=== PATIENT | male | born 1995 ===

== ENCOUNTER → 2018-11-10 | Outpatient (CLI) | payer OTHER ==
[~2018-11-10] MED LIST: CETI-176 PO; FLUT16SP19 NS; HYDR-385 PO; IBUP800T37 PO
--- NOTE | 2018-11-10 14:58 | RADIOLOGY IMAGING REPORT ---
FACILITY: PATIENT NAME: Prabhakar Moya : 1995 MR: [id number] V: [id number] EXAM DATE: ORDERING PHYSICIAN: RAHUL BASSETT TECHNOLOGIST: Location: [facility] Patient: Prabhakar Moya : 1995 Visit/Account:[id number] Date of Sevice: 11/10/2018 Technique: KNEE 3 VIEW LEFT HISTORY: knee strain Comparison studies: None FINDINGS: There is no acute fracture. The alignment of the left knee. No knee joint effusion. IMPRESSION: 1. No acute osseous process. Report Dictated By: Aleksander Wray DO at 11/10/2018 2:54 PM Report E-Signed By: Aleksander Wray DO at 11/10/2018 2:55 PM WSN:[id number]
== END ==
LOC: RAD 14:17
PROVIDERS: ATTEND Internal Medicine
DX: S86.912A Strain of unspecified muscle(s) and tendon(s) at lower leg level, left leg, initial encounter (principal)

== ENCOUNTER → 2018-11-14 | Outpatient (CLI) | payer OTHER ==
--- NOTE | 2018-11-14 12:38 | RADIOLOGY IMAGING REPORT ---
FACILITY: [facility] [place] PATIENT NAME: Prabhakar Moya : 1995 MR: [id number] V: [id number] EXAM DATE: ORDERING PHYSICIAN: RAHUL BASSETT TECHNOLOGIST: Location: [facility] [place] Patient: Prabhakar Moya : 1995 Visit/Account:[id number] Date of Sevice: 11/14/2018 CT SINUS W/O CON COMPARISONS: None ADDITIONAL PERTINENT HISTORY: Recurrent sinusitis TECHNIQUE: Multiple axial images were obtained through the paranasal sinuses with coronal and sagitta l reformatted images. No IV contrast was administered. One of the following dose optimization techni ques was utilized in the performance of this exam: Automated exposure control; adjustment of the mA a nd/or kV according to the patient's size; or use of an iterative reconstruction technique. Specific details can be referenced in the facility's radiology CT exam operational policy. FINDINGS: Maxillary sinuses: Mild mucosal thickening involving the right maxillary sinus.. Frontal sinuses: Negative. Ethmoid air cells: Negative. Sphenoid sinuses:Negative. Nasal septum: Negative. Drainage pathways: Patent Paranasal variance: None Medial orbital smith, cribriform plate, and orbital floors: Negative. Visualized bony skull base Negative. Visualized intracranial contents: Negative. Orbits and surrounding soft tissues: Negative. IMPRESSION: 1. Mild mucosal thickening involving the right maxillary sinus. 2. Otherwise negative examination. Report Dictated By: Kamaljit Blair MD at 11/14/2018 12:29 PM Report E-Signed By: Kamaljit Blair MD at 11/14/2018 12:32 PM WSN:[id number]
--- NOTE | 2018-11-14 15:10 | RADIOLOGY IMAGING REPORT ---
FACILITY: [facility] [place] PATIENT NAME: Prabhakar Moya : 1995 MR: [id number] V: [id number] EXAM DATE: ORDERING PHYSICIAN: RAHUL BASSETT TECHNOLOGIST: Location: [facility] Patient: Prabhakar Moya : 1995 Visit/Account:[id number] Date of Sevice: 11/14/2018 MR KNEE LT W/O CONTRAST COMPARISON: Left knee radiographs November 10, 2018 HISTORY: left knee pain,swelling. Patient reports injury, not otherwise specified. TECHNIQUE: Noncontrast multiplanar MRI of the left knee utilizing T1 weighted and fluid sensitive se quences. CONTRAST: None. FINDINGS: FLUID: There is no effusion or Rice's cyst. MENISCI: The menisci are intact. TENDONS/LIGAMENTS: The anterior and posterior cruciate ligaments are intact. Abnormal intermediate thickening and signal in the medial collateral ligament with mild adjacent soft tissue edema consiste nt with acute intermediate grade MCL sprain. The fibular collateral ligament, biceps femoris tendon, iliotibial tract and popliteus tendon are intact and unremarkable. Retinacula and extensor mechanism are intact and unremarkable. MUSCLES: There is no muscle atrophy or edema. CARTILAGE: No significant cartilage defects in the knee. BONES: Normal marrow signal and alignment. OTHER: Negative. IMPRESSION: Recent intermediate grade sprain of the medial collateral ligament of the left knee. Report Dictated By: Navid Solomon at 11/14/2018 2:46 PM Report E-Signed By: Navid Solomon at 11/14/2018 3:05 PM WSN:[id number]
== END ==
LOC: CT 02:48
PROVIDERS: ATTEND Internal Medicine
DX: J32.9 Chronic sinusitis, unspecified (principal); S83.412A Sprain of medial collateral ligament of left knee, initial encounter
CPT/HCPCS: 70486